=== PATIENT | female | born 1960 | race Native Hawaiian/Other Pacific Islander ===

== ENCOUNTER 2016-11-14 09:24 | Outpatient (CLI) | payer BC ==
[~2016-11-14 09:24] MED LIST: ADIPEX PO; HYDR25TA60 PO; LEVO0.0529 PO; LEVO0.0723 PO; LEVO0.117 PO; LEVO0.1T6 PO
== END 2016-11-14 19:07 | disposition home or self-care (01) ==
LOC: US 09:24
DX: Z86.39 Personal history of other endocrine, nutritional and metabolic disease (principal)

== ENCOUNTER 2017-05-08 08:36 | Outpatient (CLI) | payer BC | END 2017-05-08 19:23 | disposition home or self-care (01) | LOC: US 08:36 | DX: E03.8 Other specified hypothyroidism (principal) ==

== ENCOUNTER 2021-11-14 09:44 | Outpatient (CLI) | payer OTHER | END 2021-11-14 18:46 | disposition home or self-care (01) | LOC: MAMMO 09:44 | PROVIDERS: ATTEND Internal Medicine | DX: Z12.31 Encounter for screening mammogram for malignant neoplasm of breast (principal) ==